=== PATIENT | male | born 1975 ===

== ENCOUNTER → 2024-12-19 13:11 | Outpatient (REF) | payer BC, SELFPAY | LOC: DHSLP 13:11 | PROVIDERS: ATTENDING PHYSICIAN Internal Medicine Critical Care Medicine; FAMILY PHYSICIAN Internal Medicine | DX: G47.19 Other hypersomnia (principal); R06.83 Snoring | CPT/HCPCS: 95800 ==

== ENCOUNTER → 2025-02-22 12:25 | Outpatient (REF) | payer BC, SELFPAY | LOC: DHSLP 12:25 | PROVIDERS: ATTENDING PHYSICIAN Internal Medicine Critical Care Medicine; FAMILY PHYSICIAN Internal Medicine | DX: G47.33 Obstructive sleep apnea (adult) (pediatric) (principal) | CPT/HCPCS: 95810 ==